=== PATIENT | female | born 1975 | race Caucasian/White ===

== ENCOUNTER 2024-04-03 11:32 | Emergency (ER) | payer OTHER ==
[2024-04-03 11:51] VITALS: BP 125/72; PULSE 77; RESP 18; TEMP 98.6; BMI 28.8
== END 2024-04-03 12:41 | disposition home or self-care (01) ==
LOC: FER 11:32
DX: M70.21 Olecranon bursitis, right elbow (principal)
CPT/HCPCS: 73070-TC-RT-FY; 99283-25